=== PATIENT | male | born 1955 | race Caucasian/White ===

== ENCOUNTER 2018-04-08 22:21 | Observation (INO) | payer MEDICAID, OTHER ==
--- NOTE | 2018-04-08 22:38 | ED PDOC ---
Arrival/HPI - General Chief Complaint: Chest Pain Time Seen by Provider: 04/08/18 22:30 Historian: Patient - History of Present Illness Narrative History of Present Illness (Text): 04/08/18 22:38 Wood Johnson is a 63 year old male, whose past medical history includes hypertension and diabetes, who presents to the emergency department accompanied by relative complaining of chest pain. Patient states, as per relative acting as hand button splitter, he has been experiencing intermittent chest pain since this morning. Relative states patient recently arrived from [place]. Patient denies any fever, chills, shortness of breath, abdominal pain, nausea, vomiting, diarrhea, back pain, neck pain, headache, dizziness, or any other complaints. Symptom Onset: Gradual Symptom Course: Unchanged Activities at Onset: Light Context: Home Past Medical History - Provider Review Nursing Documentation Reviewed: Yes - Infectious Disease Hx of Infectious Diseases: None - Cardiac Hx Cardiac Disorders: Yes Hx Hypertension: Yes - Pulmonary Hx Respiratory Disorders: No - Neurological Hx Neurological Disorder: No - HEENT Hx HEENT Disorder: No - Renal Hx Renal Disorder: No - Endocrine/Metabolic Hx Endocrine Disorders: Yes Hx Diabetes Mellitus Type 2: Yes - Hematological/Oncological Hx Blood Disorders: No - Integumentary Hx Dermatological Disorder: No - Musculoskeletal/Rheumatological Hx Musculoskeletal Disorders: No - Gastrointestinal Hx Gastrointestinal Disorders: No - Genitourinary/Gynecological Hx Genitourinary Disorders: No - Psychiatric Hx Psychophysiologic Disorder: No Hx Substance Use: No Family/Social History - Physician Review Nursing Documentation Reviewed: Yes Family/Social History: Unknown Family HX Smoking Status: Never Smoked Hx Alcohol Use: No Hx Substance Use: No Allergies/Home Meds Allergies/Adverse Reactions: Allergies No Known Allergies Allergy (Verified 04/08/18 22:29) Home Medications: Home Meds Medication Instructions Recorded Confirmed Aspirin [Adult Aspirin] 81 mg PO DAILY 04/09/18 04/09/18 Bisoprolol [Zebeta] 5 mg PO DAILY 04/09/18 04/09/18 Review of Systems - Physician Review All systems were reviewed & negative as marked: Yes - Review of Systems Constitutional: Normal. absent: Fevers Eyes: Normal ENT: Normal Respiratory: Normal. absent: SOB, Cough Cardiovascular: Chest Pain Gastrointestinal: Normal. absent: Abdominal Pain, Diarrhea, Nausea, Vomiting Genitourinary Male: Normal. absent: Dysuria, Frequency, Hematuria, Urinary Output Changes Musculoskeletal: Normal. absent: Back Pain, Neck Pain Skin: Normal. absent: Rash Neurological: Normal. absent: Headache, Dizziness Endocrine: Normal Hemo/Lymphatic: Normal Psychiatric: Normal Physical Exam Vital Signs Reviewed: Yes Vital Signs Temp Pulse Resp BP Pulse Ox 04/08/18 22:34 98.3 F 69 12 134/77 100 Temperature: Afebrile Blood Pressure: Normal Pulse: Regular Respiratory Rate: Normal Appearance: Positive for: Well-Appearing, Non-Toxic, Comfortable Pain Distress: None Mental Status: Positive for: Alert and Oriented X 3 - Systems Exam Head: Present: Atraumatic, Normocephalic Pupils: Present: PERRL Extroacular Muscles: Present: EOMI Conjunctiva: Present: Normal Mouth: Present: Moist Mucous Membranes Neck: Present: Normal Range of Motion Respiratory/Chest: Present: Clear to Auscultation, Good Air Exchange. No: Respiratory Distress, Accessory Muscle Use Cardiovascular: Present: Regular Rate and Rhythm, Normal S1, S2. No: Murmurs Abdomen: No: Tenderness, Distention, Peritoneal Signs Back: Present: Normal Inspection Upper Extremity: Present: Normal Inspection. No: Cyanosis, Edema Lower Extremity: Present: Normal Inspection. No: Edema Neurological: Present: GCS=15, CN II-XII Intact, Speech Normal Skin: Present: Warm, Dry, Normal Color. No: Rashes Psychiatric: Present: Alert, Oriented x 3, Normal Insight, Normal Concentration Medical Decision Making ED Course and Treatment: 04/08/18 22:38 Impression: 63 year old male complaining of chest pain since this morning. Plan: -- EKG -- CXR -- Labs, cardiac enzymes -- Aspirin -- Reassess and disposition Prior Visits: Notes and results from previous visits were reviewed. Progress Notes: Reviewed EKG, NSR at 68 bpm. 1st degree AV block. LAD. RBBB. Inferior infarct. Non-specific ST/T wave changes. 04/09/18 00:25 CXR reviewed, shows no acute processes. 04/09/18 00:45 Case discussed with medical records manager production assembly supervisor/and who is aware and agrees with plan. - EKG Interpretation Interpreted by ED Physician: Yes Type: 12 lead EKG - Scribe Statement The provider has reviewed the documentation as recorded by the Scribe Anitha Adeline Provider Scribe Attestation: All medical record entries made by the Scribe were at my direction and personally dictated by me. I have reviewed the chart and agree that the record accurately reflects my personal performance of the history, physical exam, medical decision making, and the department course for this patient. I have also personally directed, reviewed, and agree with the discharge instructions and disposition. Disposition/Present on Arrival - Present on Arrival Any Indicators Present on Arrival: No History of DVT/PE: No History of Uncontrolled Diabetes: No Urinary Catheter: No History of Decub. Ulcer: No History Surgical Site Infection Following: None - Disposition Have Diagnosis and Disposition been Completed?: Yes Diagnosis: Chest pain Disposition: HOSPITALIZED Disposition Time: 00:46 Patient Plan: Observation Patient Problems: Current Active Problems Problem Status Onset Chest pain Acute Condition: STABLE
[2018-04-08 23:19] LABS: HEMOGLOBIN 13.4 g/dL (14.0-18.0); MEAN CELL VOLUME 63.3 fl (80.0-105.0); MEAN CORPUSCULAR HEMOGLOBIN 20.2 pg (25.0-35.0); MEAN CORPUSCULAR HGB CONC 31.8 g/dl (31.0-37.0); PLATELET COUNT 151 10^3/uL (120.0-450.0); RBC 6.65 10^6/uL (3.5-6.1); RED CELL DISTRIBUTION WIDTH 15.5 % (11.5-14.5); WHITE BLOOD COUNT 7.3 10^3/uL (4.5-11.0)
[2018-04-08 23:25] LABS: ALB/GLOB RATIO 1.3 (1.1-1.8); ALBUMIN 4.6 g/dL (3.0-4.8); ALT/SGPT 10 U/L (7-56); AST/SGOT 28 U/L (17-59); BLOOD UREA NITROGEN 20 mg/dL (7-21); CALCIUM 9.5 mg/dL (8.4-10.5); GFR NON-AFRICAN AMERICAN > 60
[2018-04-08 23:27] LABS: PARTIAL THROMBOPLASTIN TIME 32.8 Seconds (26.9-38.3)
[2018-04-08 23:35] LABS: TROPONIN I < 0.01 ng/mL
[2018-04-09 00:50] LABS: INR 1.23; PROTHROMBIN TIME 13.6 SECONDS (9.4-12.5)
--- NOTE | 2018-04-09 00:53 | CP.PCM.HP ---
<Jose Briscoe - Last Filed: 04/09/18 02:19> History of Present Illness - History of Present Illness History of Present Illness: Jose Briscoe, PGY1 H&P for Dr. Borges cc: "chest pain" Patient is a 63 year old Kazakh Speaking male with PMHx HTN, DM, RI (in [place]), BPH, Iron Deficiency Anemia who presented to the ED accompanied by family for chest pain for 1 day in duration. Patient's family members were available for translation. Patient has recently moved from [place] about 7 months ago. In the ED, Vitals: Temp 98.3, HR 69, RR 12, BP 134/77, SaO2 100% (room air). Medical team evaluated patient in the ED. He said that he has right sided chest pain that is sharp in quality. Denies radiation to the jaw, back, or upper extremities. He said the pain occurred while he was at rest, during work. His pain has improved since arriving to the ED. No recent decline in functional/activity tolerance. Denies orthopnea and lower extremity swelling. Sometimes he gets shortness of breath at night and has associated sweats. He also has associated cough for about 2 days in duration. However, he does not have any sputum production or phlegm. He said he used to get RUQ abdominal pain in the past but took pain medication to help relieve it; denies any abdominal pain at this time. Denies fever, chills, headache, shortness of breath, n/v/d, lightheadedness, dizziness, numbness/tingling of extremities, bloody stools. 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 Patient does not regularly follow up with a physician. Denies having had any stress tests, cardiac caths or stent placement in the past. Patient is a poor historian and is not aware of all the medications that he takes. A full 12 point ROS was conducted and unremarkable except as stated above. PMD: none PMHx: HTN, DM, RI (in [place]), BPH, Iron Deficiency Anemia PSHx: denies Meds: Bisoprolol, ASA 81mg daily, tablet for DM (does not know name) Allergies: NKDA FamHx: no history of premature CAD. SocialHx: denies smoking, EtOH, and recreational drug use. Lives with family. Recently moved from [place] 7 months ago. Present on Admission - Present on Admission Any Indicators Present on Admission: No Review of Systems - Review of Systems All systems: reviewed and no additional remarkable complaints except (as per HPI) Past Patient History - Infectious Disease Hx of Infectious Diseases: None - Past Social History Smoking Status: Never Smoked - CARDIAC Hx Cardiac Disorders: Yes Hx Hypertension: Yes - PULMONARY Hx Respiratory Disorders: No - NEUROLOGICAL Hx Neurological Disorder: No - HEENT Hx HEENT Problems: No - RENAL Hx Chronic Kidney Disease: No - ENDOCRINE/METABOLIC Hx Endocrine Disorders: Yes Hx Diabetes Mellitus Type 2: Yes - HEMATOLOGICAL/ONCOLOGICAL Hx Blood Disorders: No - INTEGUMENTARY Hx Dermatological Problems: No - MUSCULOSKELETAL/RHEUMATOLOGICAL Hx Musculoskeletal Disorders: No - GASTROINTESTINAL Hx Gastrointestinal Disorders: No - GENITOURINARY/GYNECOLOGICAL Hx Genitourinary Disorders: No - PSYCHIATRIC Hx Psychophysiologic Disorder: No Hx Substance Use: No - SURGICAL HISTORY Hx Surgeries: No Meds Allergies/Adverse Reactions: Allergies Allergy/AdvReac Type Severity Reaction Status Date / Time No Known Allergies Allergy Verified 04/08/18 22:29 Physical Exam - Constitutional Appears: No Acute Distress - Head Exam Head Exam: ATRAUMATIC, NORMAL INSPECTION, NORMOCEPHALIC - Eye Exam Eye Exam: EOMI, Normal appearance, PERRL Pupil Exam: NORMAL ACCOMODATION - ENT Exam ENT Exam: Mucous Membranes Moist, Normal Exam - Neck Exam Neck exam: Positive for: Normal Inspection - Respiratory Exam Respiratory Exam: Clear to Auscultation Bilateral, NORMAL BREATHING PATTERN. absent: Accessory Muscle Use, Chest Wall Tenderness, Rales, Rhonchi, Wheezes, Stridor - Cardiovascular Exam Cardiovascular Exam: RRR, +S1, +S2 - GI/Abdominal Exam GI & Abdominal Exam: Normal Bowel Sounds, Soft. absent: Firm, Guarding, Hernia, Rebound, Rigid, Tenderness - Extremities Exam Extremities exam: Positive for: full ROM, normal capillary refill, normal inspection, pedal pulses present. Negative for: calf tenderness, pedal edema, tenderness - Back Exam Back exam: NORMAL INSPECTION. absent: CVA tenderness (L), CVA tenderness (R), muscle spasm - Neurological Exam Neurological exam: Alert, CN II-XII Intact, Oriented x3 - Psychiatric Exam Psychiatric exam: Normal Affect, Normal Mood - Skin Skin Exam: Dry, Intact, Normal Color, Warm Results - Vital Signs Recent Vital Signs: Last Vital Signs Temp 98.3 F 02/09/19 22:34 Pulse 69 04/08/18 22:34 Resp 12 04/08/18 22:34 BP 134/77 04/08/18 22:34 Pulse Ox 100 04/08/18 22:34 - Labs Result Diagrams: 04/08/18 22:53 04/08/18 22:53 Labs: Laboratory Results - last 24 hr 04/08/18 04/08/18 04/08/18 22:53 22:53 22:53 WBC 7.3 RBC 6.65 H Hgb 13.4 L Hct 42.1 MCV 63.3 L MCH 20.2 L MCHC 31.8 RDW 15.5 H Plt Count 151 APTT 32.8 Sodium 133 Potassium 4.6 Chloride 98 Carbon Dioxide 26 Anion Gap 13 BUN 20 Creatinine 1.0 Est GFR ( Amer) > 60 Est GFR (Non-Af Amer) > 60 Random Glucose 237 H Calcium 9.5 Total Bilirubin 1.0 AST 28 ALT 10 Alkaline Phosphatase 85 Lactate Dehydrogenase 427 Total Creatine Kinase 34 L Troponin I < 0.01 Total Protein 8.0 Albumin 4.6 Globulin 3.4 Albumin/Globulin Ratio 1.3 Assessment & Plan - Assessment and Plan (Free Text) Assessment: Patient is a 63 year old [place] Speaking male with PMHx HTN, DM, [place] (in [place]), BPH, Iron Deficiency Anemia who presented to the ED accompanied by family for chest pain for 1 day in duration. Patient will be admitted for atypical chest pain - r/o ACS. Plan: Atypical Chest Pain - r/o ACS - ASA 81mg daily - trend trops q6; initial trop negative x1 - robutussin prn for cough; may be due to previous URI and reason for chest pain - Lipid panel - TSH - Hgb A1c - Cardio consulted (Dr. Estes) - Echo - CXR: no signs of active cardiopulmonary disease - EKG: NSR at 68 bpm. 1st degree AV block. LAD. RBBB. Non-specific ST or T wave changes. - Hx of RI in [place] Hx Iron Deficiency Anemia - Iron studies ordered - MCV 63 - Considering low MCV and hx of night sweats with Congolese origin, order thick smear to r/o malaria Hx DM - ISS (low) - Accuchecks - Glucose 237 in ED Hx HTN - resume home med bisoprolol or alternative BP med if non-formulary - monitor BP GI ppx: ptx DVT ppx: scd Diet: NPO (except meds) Dispo: monitor patient on remote telemetry. Case was discussed and reviewed with Attending Physician, Dr. Borges <Rafa Borges - Last Filed: 04/09/18 20:16> Results - Vital Signs Recent Vital Signs: Last Vital Signs Temp 98 F 04/09/18 07:54 Pulse 72 04/09/18 14:00 Resp 20 04/09/18 07:54 BP 129/68 04/09/18 07:54 Pulse Ox 98 04/09/18 07:54 - Labs Result Diagrams: 04/09/18 06:00 04/09/18 06:00 Labs: Laboratory Results - last 24 hr 04/08/18 04/08/18 04/08/18 22:53 22:53 22:53 WBC 7.3 RBC 6.65 H Hgb 13.4 L Hct 42.1 MCV 63.3 L MCH 20.2 L MCHC 31.8 RDW 15.5 H Plt Count 151 Neutrophils % (Manual) 61 Band Neutrophils % 2 Lymphocytes % (Manual) 29 Monocytes % (Manual) 7 H Eosinophils % (Manual) 1 Platelet Evaluation Normal Hypochromasia Slight Basophilic Stippling 1+ Anisocytosis (manual) 1+ Microcytosis (manual) Slight Ovalocytes Slight Retic Count PT 13.6 H INR 1.23 APTT 32.8 Sodium 133 Potassium 4.6 Chloride 98 Carbon Dioxide 26 Anion Gap 13 BUN 20 Creatinine 1.0 Est GFR ( Amer) > 60 Est GFR (Non-Af Amer) > 60 POC Glucose (mg/dL) Random Glucose 237 H Hemoglobin A1c Calcium 9.5 Phosphorus Magnesium Iron TIBC % Saturation Ferritin Total Bilirubin 1.0 AST 28 ALT 10 Alkaline Phosphatase 85 Lactate Dehydrogenase 427 Total Creatine Kinase 34 L Troponin I < 0.01 Total Protein 8.0 Albumin 4.6 Globulin 3.4 Albumin/Globulin Ratio 1.3 Triglycerides Cholesterol LDL Cholesterol Direct HDL Cholesterol TSH 3rd Generation 04/09/18 04/09/18 04/09/18 01:40 05:44 06:00 WBC 6.6 RBC 6.67 H Hgb 13.4 L Hct 41.9 L MCV 62.8 L MCH 20.1 L MCHC 32.0 RDW 15.4 H Plt Count 168 Neutrophils % (Manual) Band Neutrophils % Lymphocytes % (Manual) Monocytes % (Manual) Eosinophils % (Manual) Platelet Evaluation Hypochromasia Basophilic Stippling Anisocytosis (manual) Microcytosis (manual) Ovalocytes Retic Count 1.88 H PT INR APTT Sodium Potassium Chloride Carbon Dioxide Anion Gap BUN Creatinine Est GFR ( Amer) Est GFR (Non-Af Amer) POC Glucose (mg/dL) 180 H 196 H Random Glucose Hemoglobin A1c Calcium Phosphorus Magnesium Iron TIBC % Saturation Ferritin Total Bilirubin AST ALT Alkaline Phosphatase Lactate Dehydrogenase Total Creatine Kinase Troponin I Total Protein Albumin Globulin Albumin/Globulin Ratio Triglycerides Cholesterol LDL Cholesterol Direct HDL Cholesterol TSH 3rd Generation 04/09/18 04/09/18 04/09/18 06:00 06:00 06:00 WBC RBC Hgb Hct MCV MCH MCHC RDW Plt Count Neutrophils % (Manual) Band Neutrophils % Lymphocytes % (Manual) Monocytes % (Manual) Eosinophils % (Manual) Platelet Evaluation Hypochromasia Basophilic Stippling Anisocytosis (manual) Microcytosis (manual) Ovalocytes Retic Count PT INR APTT Sodium 137 Potassium 3.9 Chloride 100 Carbon Dioxide 28 Anion Gap 13 BUN 20 Creatinine 1.0 Est GFR ( Amer) > 60 Est GFR (Non-Af Amer) > 60 POC Glucose (mg/dL) Random Glucose 193 H Hemoglobin A1c 10.5 H Calcium 9.4 Phosphorus 4.0 Magnesium 1.8 Iron TIBC % Saturation Ferritin 152.0 Total Bilirubin 1.1 AST 23 ALT 13 Alkaline Phosphatase 89 Lactate Dehydrogenase Total Creatine Kinase Troponin I < 0.01 Total Protein 8.0 Albumin 4.5 Globulin 3.5 Albumin/Globulin Ratio 1.3 Triglycerides 225 H Cholesterol 171 LDL Cholesterol Direct 110 HDL Cholesterol 31 TSH 3rd Generation 2.11 04/09/18 04/09/18 04/09/18 06:00 11:46 11:54 WBC RBC Hgb Hct MCV MCH MCHC RDW Plt Count Neutrophils % (Manual) Band Neutrophils % Lymphocytes % (Manual) Monocytes % (Manual) Eosinophils % (Manual) Platelet Evaluation Hypochromasia Basophilic Stippling Anisocytosis (manual) Microcytosis (manual) Ovalocytes Retic Count PT INR APTT Sodium Potassium Chloride Carbon Dioxide Anion Gap BUN Creatinine Est GFR ( Amer) Est GFR (Non-Af Amer) POC Glucose (mg/dL) 237 H Random Glucose Hemoglobin A1c Calcium Phosphorus Magnesium Iron 60 TIBC 280 % Saturation 21 Ferritin Total Bilirubin AST ALT Alkaline Phosphatase Lactate Dehydrogenase Total Creatine Kinase Troponin I < 0.01 Total Protein Albumin Globulin Albumin/Globulin Ratio Triglycerides Cholesterol LDL Cholesterol Direct HDL Cholesterol TSH 3rd Generation 04/09/18 16:19 WBC RBC Hgb Hct MCV MCH MCHC RDW Plt Count Neutrophils % (Manual) Band Neutrophils % Lymphocytes % (Manual) Monocytes % (Manual) Eosinophils % (Manual) Platelet Evaluation Hypochromasia Basophilic Stippling Anisocytosis (manual) Microcytosis (manual) Ovalocytes Retic Count PT INR APTT Sodium Potassium Chloride Carbon Dioxide Anion Gap BUN Creatinine Est GFR ( Amer) Est GFR (Non-Af Amer) POC Glucose (mg/dL) 166 H Random Glucose Hemoglobin A1c Calcium Phosphorus Magnesium Iron TIBC % Saturation Ferritin Total Bilirubin AST ALT Alkaline Phosphatase Lactate Dehydrogenase Total Creatine Kinase Troponin I Total Protein Albumin Globulin Albumin/Globulin Ratio Triglycerides Cholesterol LDL Cholesterol Direct HDL Cholesterol TSH 3rd Generation Attending/Attestation - Attestation I have personally seen and examined this patient.: Yes I have fully participated in the care of the patient.: Yes I have reviewed all pertinent clinical information: Yes
[2018-04-09] MEDS ORDERED: guaiFENesin 100 mg/5 ml Syrup UD PO PRN (01:33)
[2018-04-09 02:28] VITALS: BMI 21.9
[2018-04-09 03:16] LABS: ANISOCYTOSIS 1+; BAND 2 % (0-2); EOSINOPHIL 1 % (0.0-3.0); HYPOCHROMIA SLIGHT; LYMPHOCYTE 29 % (22.0-35.0); MICROCYTOSIS SLIGHT; MONOCYTE 7 % (1.0-6.0); NEUTROPHIL 61 % (50.0-70.0); PLATELET ESTIMATE NORMAL (NORMAL)
[2018-04-09 03:17] LABS: OVALOCYTES SLIGHT
[2018-04-09] MEDS ORDERED: Pantoprazole 40 mg EC Tab PO SCH (06:00)
[2018-04-09] MEDS: Insulin Lispro (humaLOG) LOW Coverage SC SCH ×2 (06:03→12:59)
[2018-04-09 06:53] LABS: IRON 60 ug/dL (45-180)
[2018-04-09 07:03] LABS: % IRON SATURATION 21 % (20-55); TOTAL IRON BINDING CAPACITY 280 ug/dL (261-462)
[2018-04-09 07:04] LABS: LDL CHOLESTEROL 110 mg/dL (0-129); TROPONIN I < 0.01 ng/mL
[2018-04-09 07:24] LABS: ALB/GLOB RATIO 1.3 (1.1-1.8); ALBUMIN 4.5 g/dL (3.0-4.8); ALT/SGPT 13 U/L (7-56); AST/SGOT 23 U/L (17-59); BLOOD UREA NITROGEN 20 mg/dL (7-21); CALCIUM 9.4 mg/dL (8.4-10.5); GFR NON-AFRICAN AMERICAN > 60; HDL CHOLESTEROL 31 mg/dL (29-60)
[2018-04-09 07:55] VITALS: BP 129/68; RESP 20; TEMP 98; O2SAT 98
[2018-04-09 08:05] LABS: HEMOGLOBIN 13.4 g/dL (14.0-18.0); MEAN CELL VOLUME 62.8 fl (80.0-105.0); MEAN CORPUSCULAR HEMOGLOBIN 20.1 pg (25.0-35.0); PLATELET COUNT 168 10^3/uL (120.0-450.0); RBC 6.67 10^6/uL (3.5-6.1); RED CELL DISTRIBUTION WIDTH 15.4 % (11.5-14.5); WHITE BLOOD COUNT 6.6 10^3/uL (4.5-11.0)
--- NOTE | 2018-04-09 08:39 | CON ---
DATE OF CONSULTATION: 04/09/2018 REQUESTING PHYSICIAN: Dr. Benitez. REASON FOR CONSULTATION: Chest pain. HISTORY OF PRESENT ILLNESS: This is a 63-year-old [place] man, who recently immigrated from [place], who presents to the emergency room complaining of chest discomfort, diaphoresis, and weakness. He is seen in the presence of his and daughter, who acted as box blank machine operator. According to his daughter, he reportedly had a myocardial infarction some time back in [place]. Full details are unavailable. His pain is described as a sharp sensation unrelated to activities. Does have a history of hypertension and diabetes. He does not smoke. There is no family history of premature heart disease. His cholesterol status is uncertain. PAST MEDICAL HISTORY: His past history is notable for the problems mentioned above. He reports he has BPH and iron deficiency anemia as well. MEDICATIONS: Medications at home reportedly are aspirin, bisoprolol, and an oral hypoglycemic. SOCIAL HISTORY: He is , lives with his . He does not smoke or drink. ALLERGIES: NONE. FAMILY HISTORY: Unremarkable for premature heart disease. REVIEW OF SYSTEMS: Ten-point review of systems is otherwise unremarkable. PHYSICAL EXAMINATION: GENERAL: He is a middle-aged man, who appears comfortable at rest. VITAL SIGNS: His blood pressure is 120/72 with a pulse of 60 and respirations are 16. He is afebrile. HEENT: Normocephalic, atraumatic. NECK: Supple. No JVD noted. CHEST: Few scattered rhonchi are heard. HEART: PMI in normal position. No pathological murmurs or gallops noted. ABDOMEN: Soft, nontender with normoactive bowel sounds. EXTREMITIES: No clubbing, cyanosis, or edema. SKIN: Warm and dry. PSYCHIATRIC: Normal mood and affect. NEUROLOGICAL: Alert and oriented x3. No gross motor or sensory deficits notable. DIAGNOSTIC DATA: Potassium 4.6, BUN and creatinine are 21 and 1, glucose 237. CK is 34. Troponin is negative. White count 7.3, hemoglobin and hematocrit are 13.4 and 42.1 with a platelet count of 151,000. PT/INR are 13.6 and 32.8. Chest x-ray reveals normal cardiac silhouette with clear lung vargas. Electrocardiogram revealed sinus rhythm with nonspecific ST-T abnormalities. IMPRESSION: 1. Chest pain, it sounds somewhat atypical by description. 2. Possible history of heart disease with prior documentation unclear. Multiple cardiac risk factors given his diabetes and hypertension. RECOMMENDATIONS: Three sets cardiac enzyme should be checked. If there is no evidence of significant cardiac injury, discharge home with continuation of his current medications as well as a statin would be advisable. An outpatient stress test can then be arranged. If he has recurrent symptoms or his cardiac enzymes become positive, a reevaluation will be necessary. Thank you for this consultation. We will be happy to see him as needed. Christian Mao MD
[2018-04-09] MEDS ORDERED: Albuterol-Ipratrop 3 mg / 0.5 (3 ml) UD IH PRN (08:45)
--- NOTE | 2018-04-09 08:55 | RAD ---
Date of service: 04/08/2018 HISTORY: chest pain COMPARISON: No prior. FINDINGS: LUNGS: No active pulmonary disease. PLEURA: No significant pleural effusion identified, no pneumothorax apparent. CARDIOVASCULAR: No aortic atherosclerotic calcification present. Mild cardiomegaly no pulmonary vascular congestion. OSSEOUS STRUCTURES: No significant abnormalities. VISUALIZED UPPER ABDOMEN: Normal. OTHER FINDINGS: None. IMPRESSION: No active disease.
[2018-04-09] MEDS ORDERED: Albuterol-Ipratrop 3 mg / 0.5 (3 ml) UD IH SCH (09:00)
[2018-04-09] MEDS ORDERED: BISOPROLOL 5 MG PO SCH (10:00)
--- NOTE | 2018-04-09 15:21 | CP.PCM.DIS ---
Provider - Provider Date of Admission: 04/09/18 00:44 Attending physician: Martha Benitez MD Consults: 04/09/18 01:32 Physician Consult Routine Comment: Consulting Provider: Adam Estes Consulting Physician: Adam Estes Reason for Consult: chest pain; cardiac risk factors Time Spent in preparation of Discharge (in minutes): 45 Diagnosis - Discharge Diagnosis (1) Atypical chest pain Status: Acute (2) CAD (coronary artery disease) Status: Acute (3) DM2 (diabetes mellitus, type 2) Status: Chronic (4) HTN (hypertension) Status: Chronic (5) BPH (benign prostatic hyperplasia) Status: Chronic Hospital Course - Lab Results Lab Results: Most Recent Lab Values WBC 6.6 10^3/uL (4.5-11.0) 04/09/18 06:00 RBC 6.67 10^6/uL (3.5-6.1) H 04/09/18 06:00 Hgb 13.4 g/dL (14.0-18.0) L 04/09/18 06:00 Hct 41.9 % (42.0-52.0) L 04/09/18 06:00 MCV 62.8 fl (80.0-105.0) L 04/09/18 06:00 MCH 20.1 pg (25.0-35.0) L 04/09/18 06:00 MCHC 32.0 g/dl (31.0-37.0) 04/09/18 06:00 RDW 15.4 % (11.5-14.5) H 04/09/18 06:00 Plt Count 168 10^3/uL (120.0-450.0) 04/09/18 06:00 Neutrophils % (Manual) 61 % (50.0-70.0) 04/08/18 22:53 Band Neutrophils % 2 % (0-2) 04/08/18 22:53 Lymphocytes % (Manual) 29 % (22.0-35.0) 04/08/18 22:53 Monocytes % (Manual) 7 % (1.0-6.0) H 04/08/18 22:53 Eosinophils % (Manual) 1 % (0.0-3.0) 04/08/18 22:53 Platelet Evaluation Normal (NORMAL) 04/08/18 22:53 Hypochromasia Slight 04/08/18 22:53 Basophilic Stippling 1+ 04/08/18 22:53 Anisocytosis (manual) 1+ 04/08/18 22:53 Microcytosis (manual) Slight 04/08/18 22:53 Ovalocytes Slight 04/08/18 22:53 Retic Count 1.88 % (0.5-1.5) H 04/09/18 06:00 PT 13.6 SECONDS (9.4-12.5) H 04/08/18 22:53 INR 1.23 04/08/18 22:53 APTT 32.8 Seconds (26.9-38.3) 04/08/18 22:53 Sodium 137 mmol/L (132-148) 04/09/18 06:00 Potassium 3.9 mmol/L (3.6-5.0) 04/09/18 06:00 Chloride 100 mmol/L (98-107) 04/09/18 06:00 Carbon Dioxide 28 mmol/L (21-33) 04/09/18 06:00 Anion Gap 13 (10-20) 04/09/18 06:00 BUN 20 mg/dL (7-21) 04/09/18 06:00 Creatinine 1.0 mg/dl (0.8-1.5) 04/09/18 06:00 Est GFR ( Amer) > 60 04/09/18 06:00 Est GFR (Non-Af Amer) > 60 04/09/18 06:00 POC Glucose (mg/dL) 237 mg/dL (65-110) H 04/09/18 11:54 Random Glucose 193 mg/dL (70-110) H 04/09/18 06:00 Hemoglobin A1c 10.5 % (4.2-6.5) H 04/09/18 06:00 Calcium 9.4 mg/dL (8.4-10.5) 04/09/18 06:00 Phosphorus 4.0 mg/dL (2.5-4.5) 04/09/18 06:00 Magnesium 1.8 mg/dL (1.7-2.2) 04/09/18 06:00 Iron 60 ug/dL (45-180) 04/09/18 06:00 TIBC 280 ug/dL (261-462) 04/09/18 06:00 % Saturation 21 % (20-55) 04/09/18 06:00 Ferritin 152.0 ng/mL 04/09/18 06:00 Total Bilirubin 1.1 mg/dL (0.2-1.3) 04/09/18 06:00 AST 23 U/L (17-59) 04/09/18 06:00 ALT 13 U/L (7-56) 04/09/18 06:00 Alkaline Phosphatase 89 U/L (38-126) 04/09/18 06:00 Lactate Dehydrogenase 427 U/L (333-699) 04/08/18 22:53 Total Creatine Kinase 34 U/L (35-230) L 04/08/18 22:53 Troponin I < 0.01 ng/mL 04/09/18 11:46 Total Protein 8.0 g/dL (5.8-8.3) 04/09/18 06:00 Albumin 4.5 g/dL (3.0-4.8) 04/09/18 06:00 Globulin 3.5 gm/dL 04/09/18 06:00 Albumin/Globulin Ratio 1.3 (1.1-1.8) 04/09/18 06:00 Triglycerides 225 mg/dL (35-160) H 04/09/18 06:00 Cholesterol 171 mg/dL (130-200) 04/09/18 06:00 LDL Cholesterol Direct 110 mg/dL (0-129) 04/09/18 06:00 HDL Cholesterol 31 mg/dL (29-60) 04/09/18 06:00 TSH 3rd Generation 2.11 mIU/mL (0.46-4.68) 04/09/18 06:00 - Hospital Course Hospital Course: 63 year old [place] male with PMH of CAD (no hx of cath), DM2 (not taking prescribed metformin), HTN and BPH who was admitted for atypical chest pain that he states is related to his diaphragm, that radiates to his back. He states that he usually gets this pain before an asthma attack. The patient was diagnosed with CAD on an EKG in [place] and was started on the following medications:Bisoprolol 5/HCTZ 12.5mg, nitroglycerin 2.5mg, [id number], and Atorvastatin 10mg. Patient states that he has been compliant with these medications. However, he is also prescribed Metformin 850mg, which he is non- compliant with because he doesn't feel his DM2 is uncontrolled. Patient is also on Finasteride and Tamsulosin for BPH. CXR was unremarkable. EKG showed sinus rhythm w/ 1st degree heart block, possible LA enlargement, LAD, RBBB. A1c was 10.5 and LDL 110. Cardiology was consulted, and Dr. Mao recommended d/c home w/ continued meds and outpatient stress test. Troponin was negative x3 with no changes in EKG. The patient's symptoms improved, and he was requesting to be discharged. Echo was pending but patient stated that he would like to follow-up in clinic and do the Echocardiogram and stress test as outpatient. Discussion was had with the family regarding med rec and continuation of medications, sticking to low carb diet and starting metformin. Appointment will be to follow- up in [facility] for close follow-up and cardiology follow-up. Upon discharge, the patient offers no complaints and his questions were answered. Discharge Exam - Head Exam Head Exam: ATRAUMATIC, NORMAL INSPECTION, NORMOCEPHALIC - Eye Exam Eye Exam: EOMI, Normal appearance, PERRL Pupil Exam: NORMAL ACCOMODATION, PERRL - ENT Exam ENT Exam: Mucous Membranes Moist - Neck Exam Neck exam: Full Rom, Normal Inspection - Respiratory Exam Respiratory Exam: NORMAL BREATHING PATTERN, UNREMARKABLE. absent: Rales, Rhonchi, Wheezes, Respiratory Distress - Cardiovascular Exam Cardiovascular Exam: RRR, +S1, +S2. absent: JVD, Systolic Murmur - GI/Abdominal Exam GI & Abdominal Exam: Normal Bowel Sounds, Soft. absent: Distended, Tenderness - Extremities Exam Extremities exam: full ROM, normal inspection - Back Exam Back exam: NORMAL INSPECTION. absent: paraspinal tenderness - Neurological Exam Neurological exam: Alert, CN II-XII Intact, Normal Gait, Oriented x3, Reflexes Normal - Psychiatric Exam Psychiatric exam: Normal Affect, Normal Mood - Skin Skin Exam: Dry, Intact, Normal Color, Warm Discharge Plan - Discharge Medications Prescriptions: Aspirin [Adult Aspirin] 81 mg PO DAILY #14 tablet. Atorvastatin [Lipitor] 40 mg PO DIN #14 tab Bisoprolol [Zebeta] 5 mg PO DAILY #14 tab Finasteride [Proscar] 5 mg PO DAILY #14 tab hydroCHLOROthiazide [Microzide] 12.5 mg PO DAILY #14 cap MetFORMIN [glucoPHAGE] 1,000 mg PO DAILY #14 tab Tamsulosin [Flomax] 0.4 mg PO DAILY #14 cap - Follow Up Plan Condition: STABLE Disposition: HOME/ ROUTINE Instructions: Type 2 Diabetes, Metabolic Syndrome Additional Instructions: Please follow-up with [facility] clinic appointment, they will call to set up an appointment with you Please have Echocardiogram performed, script provided Please take your medications as scheduled Please refrain from foods containing high carbs Referrals: [facility] [place] [Outside] Christian Mao MD [Staff Provider] -
[2018-04-09 16:21] VITALS: PULSE 72
--- NOTE | 2018-04-09 16:46 | CARD ---
APPROVED REPORT Date of service: 04/08/2018 EKG Measurement Heart [id number] <Conclusion> Sinus rhythm with 1st degree AV block Possible Left atrial enlargement Left axis deviation Right bundle branch block Inferior infarct, age undetermined Abnormal ECG
--- NOTE | 2018-04-09 20:46 | CARD ---
APPROVED REPORT Date of service: 04/09/2018 EKG Measurement Heart [id number] <Conclusion> Normal sinus rhythm Left axis deviation Right bundle branch block Abnormal ECG
== END 2018-04-09 19:21 | disposition home or self-care (01) ==
LOC: ED 22:21 → ERH 04-09 00:44 → 3RNO 04-09 02:00
PROVIDERS: ADMIT Internal Medicine; ATTEND Internal Medicine
DX: R07.89 Other chest pain (principal); I10 Essential (primary) hypertension; I25.10 Atherosclerotic heart disease of native coronary artery without angina pectoris; E11.9 Type 2 diabetes mellitus without complications; N40.0 Benign prostatic hyperplasia without lower urinary tract symptoms; D50.9 Iron deficiency anemia, unspecified; J45.909 Unspecified asthma, uncomplicated
CPT/HCPCS: 36415; 71045; 80053; 80061; 82550; 82728; 82948; 83036; 83540; 83550; 83615; 83735; 84100; 84443; 84484; 85007; 85027; 85044; 85610; 85730; 93005; 94640; 94760; 99285; G0378